=== PATIENT | female | born 1955 | race Caucasian/White ===

== ENCOUNTER → 2024-11-03 | Day surgery (SDC) | payer OTHER, MEDICARE ==
[2024-11-02 11:03] VITALS: BMI 33.7
[2024-11-03 09:50] VITALS: TEMP 98
[2024-11-03 10:16] VITALS: BP 132/86; PULSE 80; RESP 18
== END | disposition home or self-care (01) ==
LOC: JASU-ENDO 06:24
PROVIDERS: ATTEND Internal Medicine Gastroenterology
PROC: 0DBL8ZX Excision of Transverse Colon, Via Natural or Artificial Opening Endoscopic, Diagnostic (ICD-10-PCS; 2024-11-03)
PROC: 0DBP8ZX Excision of Rectum, Via Natural or Artificial Opening Endoscopic, Diagnostic (ICD-10-PCS; 2024-11-03)
PROC: 0DBK8ZX Excision of Ascending Colon, Via Natural or Artificial Opening Endoscopic, Diagnostic (ICD-10-PCS; principal; 2024-11-03 08:30)
DX: Z12.11 Encounter for screening for malignant neoplasm of colon (principal); D12.8 Benign neoplasm of rectum; D12.3 Benign neoplasm of transverse colon; D12.2 Benign neoplasm of ascending colon; K57.30 Diverticulosis of large intestine without perforation or abscess without bleeding; Z86.0100 Personal history of colon polyps, unspecified
CPT/HCPCS: 88305-TC